=== PATIENT | male | born 1990 | race American Indian/Alaskan Native ===

== ENCOUNTER 2018-10-27 03:40 | Emergency (ER) | payer SELFPAY ==
[2018-10-27 03:59] VITALS: TEMP 98.9
--- NOTE | 2018-10-27 04:28 | C.PDOC ---
History Of Present Illness 28 year old male is brought to the ED by EMS for public intoxication. As per Friend patient drank too much, laid down on the train and fell sleep. Patient is grossly intoxicated, responds to deep stimulus. <PaulmaryRosalind - Last Filed: 10/27/18 06:39> History Per: EMS History/Exam Limitations: no limitations Onset/Duration Of Symptoms: Hrs Current Symptoms Are (Timing): Still Present Modifying Factor(s): Alcohol Associated Symptoms: denies: Depression, Suicidal Thoughts, Suicidal Plan Recent travel outside of the [place]: No Additional History Per: EMS, Friend <LarsRosalind - Last Filed: 10/27/18 06:39> <Lyndsay Gama - Last Filed: 10/27/18 09:29> Time Seen by Provider: 10/27/18 03:50 Chief Complaint (Nursing): Substance Abuse Past Medical History Reviewed: Historical Data, Nursing Documentation, Vital Signs Vital Signs: Last Vital Signs Temp 98.9 F 10/27/18 03:48 Pulse 71 10/27/18 03:48 Resp 15 10/27/18 03:48 BP 118/80 10/27/18 03:48 Pulse Ox 97 10/27/18 03:48 Primary Care Provider: FAMILY PROVIDER,NO - Medical History PMH: No Chronic Diseases Surgical History: No Surg Hx Family History: States: Unknown Family Hx - Social History Hx Alcohol Use: Yes Hx Substance Use: No <PaulhuntermooseRosalind - Last Filed: 10/27/18 06:39> Vital Signs: Last Vital Signs Temp 98.9 F 10/27/18 03:48 Pulse 79 10/27/18 08:46 Resp 18 10/27/18 08:46 BP 106/69 10/27/18 08:46 Pulse Ox 100 10/27/18 08:46 <Lyndsay Gama - Last Filed: 10/27/18 09:29> Review Of Systems Review Of Systems: ROS cannot be obtained secondary to pt's inabilty to answer questions. (intoxication) <PaulmaryRosalind - Last Filed: 10/27/18 06:39> Physical Exam - Physical Exam Appears: Non-toxic, Other (intoxicated) Skin: Normal Color, Warm, Dry Head: Atraumatic, Normacephalic Eye(s): bilateral: Normal Inspection Neck: Normal ROM, Supple Chest: Symmetrical Cardiovascular: Rhythm Regular Respiratory: Normal Breath Sounds, No Rales, No Rhonchi, No Wheezing Extremity: Bilateral: Atraumatic, Normal Color And Temperature, Normal ROM Neurological/Psych: Other (Grossly intoxicated, responds to deep stimuli) Gait: Unable To Assess <PaulhunterRosalind virk - Last Filed: 10/27/18 06:39> ED Course And Treatment O2 Sat by Pulse Oximetry: 97 (ON RA) Pulse Ox Interpretation: Normal <LarsRosalind Filed: 10/27/18 06:39> Reevaluation Time: 09:25 Reassessment Condition: Improved (Patient's friends are in the ED to take him home. Patient is AAOx3, mildly intoxicated but able to ambulate. Friends instructed to take patiet home, and they understand he should be brought back to ED if he has any concerning symptoms.) <Lyndsay Gama - Last Filed: 10/27/18 09:29> Medical Decision Making Medical Decision Making: Plan: * Observe till clinically sober <LarsRosalind - Last Filed: 10/27/18 06:39> Disposition - Disposition Disposition Time: 07:00 <LarsRosalind Filed: 10/27/18 06:39> Counseled Patient/Family Regarding: Studies Performed, Diagnosis, Need For Followup <Lyndsay Gama - Last Filed: 10/27/18 09:29> - Disposition Referrals: [facility] [Outside] Condition: STABLE Instructions: Alcohol Abuse and Alcoholism (DC) Forms: [facility] (Japanese), General Discharge Instructions Print Language: ANGUILLAN - Clinical Impression Clinical Impression: Alcohol intoxication - Scribe Statement The provider has reviewed the documentation as recorded by the Scribe Feliciano Rodriguez All medical record entries made by the Scribe were at my direction and perso pb dictated by me. I have reviewed the chart and agree that the record accurately reflects my personal performance of the history, physical exam, medical decision making, and the department course for this patient. I have also personally directed, reviewed, and agree with the discharge instructions and disposition. <Rosalind Sousa - Last Filed: 10/27/18 06:39> Physician Patient Turnover Patient Signed Over To: Natan,Lyndsay A Handoff Comments: FU DISPO <Rosalind Sousa - Last Filed: 10/27/18 06:39>
[2018-10-27 08:47] VITALS: BP 106/69; PULSE 79; RESP 18; O2SAT 100
== END 2018-10-27 09:40 | disposition home or self-care (01) ==
LOC: C.ER 03:40
DX: F10.129 Alcohol abuse with intoxication, unspecified (principal)